=== PATIENT | female | born 1965 | race Two or more races ===

== ENCOUNTER 2022-03-19 17:20 | Emergency (ER) | payer MEDICAID, OTHER ==
[~2022-03-19] VITALS: Ht 162.6 cm; Wt 108.9 kg
[2022-03-19] MEDS ORDERED: BENA20TA9 PO (17:58)
[2022-03-19] MEDS ORDERED: METO25TA6 PO (17:58)
[2022-03-19] MEDS ORDERED: HYDR12.55 PO (17:58)
[2022-03-19] MEDS ORDERED: ATEN25TA PO (17:58)
[2022-03-19] MEDS ORDERED: ATOR40TA PO (17:58)
--- NOTE | 2022-03-19 18:00 | NUR ---
PT SEEN AND EVALUATED BY DR KOWALSKI.
[2022-03-19] MEDS ORDERED: AMOX-430 PO (18:06)
[2022-03-19] MEDS ORDERED: IBUP-1955 PO (18:06)
[2022-03-19 19:17] VITALS: BP 180/98
== END 2022-03-19 18:10 | disposition home or self-care (01) ==
LOC: ER 17:20
DX: H66.91 Otitis media, unspecified, right ear (principal); R59.0 Localized enlarged lymph nodes; I10 Essential (primary) hypertension; E66.9 Obesity, unspecified; Z68.41 Body mass index [BMI] 40.0-44.9, adult
CPT/HCPCS: A4663